=== PATIENT | male | born 1990 | race Caucasian/White ===

== ENCOUNTER 2017-04-18 19:11 | Emergency (ER) | payer OTHER, SELFPAY ==
[2017-04-18] MEDS ORDERED: Fluorescein Opthalmic Strip ONE (19:17)
[2017-04-18] MEDS ORDERED: Tetracaine HCl 0.5% Ophth Soln 2 ML Bottle ONE (19:17)
[2017-04-18] MEDS ORDERED: Adacel (T-DAP) 0.5 ML VIAL ONE (19:41)
== END 2017-04-18 20:11 | disposition home or self-care (01) ==
LOC: NAV ERS 19:11
DX: T15.01XA Foreign body in cornea, right eye, initial encounter (principal); F41.9 Anxiety disorder, unspecified; F17.210 Nicotine dependence, cigarettes, uncomplicated; Z23 Encounter for immunization; Z79.899 Other long term (current) drug therapy
CPT/HCPCS: 65220; 90471; 90715